=== PATIENT | female | born 1965 | race Hispanic/Latino ===

== ENCOUNTER 2024-03-10 11:00 | Outpatient (RCR) | payer BC | END 2024-03-17 | LOC: PT 11:00 | PROVIDERS: ATTEND Family Medicine | DX: M25.561 Pain in right knee (principal) ==

== ENCOUNTER → 2024-10-02 | Day surgery (SDC) | payer BC, OTHER ==
[~2024-10-02] MED LIST: BIOTIN PLUS 5,1 EACH PO; FENTANYL CITRATE/PF 100MCG/2 ML INJ ONE; LACTATED RINGER'S 1,000 ML ONE; LIDOCAINE HCL 2% LOCAL INJ 5 ML SDV VIAL INJ ONE; MIDAZOLAM HCL 2 MG/2 ML VIAL ONE; PROPOFOL IV EMULSION 10 MG/ML 20 ML VIAL ONE; [UNRECOGNIZED DRUG - OTHER] PO
[2024-10-02 14:10] VITALS: BP 120/84; PULSE 64; RESP 12; O2SAT 99
== END | disposition home or self-care (01) ==
LOC: OR 11:30
PROVIDERS: ATTEND Internal Medicine Gastroenterology
DX: Z09 Encounter for follow-up examination after completed treatment for conditions other than malignant neoplasm (principal); K52.9 Noninfective gastroenteritis and colitis, unspecified; K64.8 Other hemorrhoids; M06.9 Rheumatoid arthritis, unspecified; Z88.0 Allergy status to penicillin; Z01.810 Encounter for preprocedural cardiovascular examination; Z68.25 Body mass index [BMI] 25.0-25.9, adult; Z86.0100 Personal history of colon polyps, unspecified
CPT/HCPCS: 45380; 93005; J2003; J2250; J2704; J3010; J7121; 45378